=== PATIENT | male | born 1950 | race Caucasian/White ===

== ENCOUNTER → 2020-03-14 11:03 | Outpatient (BNVA) | payer MEDICARE, SELFPAY | PROVIDERS: Family Provider Family Medicine; PCP Nurse Practitioner Family; Visit Provider Nurse Practitioner Family | DX: R82.90 Unspecified abnormal findings in urine (principal); E78.5 Hyperlipidemia, unspecified; E11.9 Type 2 diabetes mellitus without complications; E03.9 Hypothyroidism, unspecified; Z12.5 Encounter for screening for malignant neoplasm of prostate; R39.15 Urgency of urination | CPT/HCPCS: 80053; 80061; 81000; 83036; 84153; 84439; 84443 ==

== ENCOUNTER → 2020-03-19 14:34 | Outpatient (BNVA) | payer MEDICARE, SELFPAY | PROVIDERS: Family Provider Family Medicine; PCP Nurse Practitioner Family; Visit Provider Nurse Practitioner Family | DX: E03.9 Hypothyroidism, unspecified (principal); R82.90 Unspecified abnormal findings in urine | CPT/HCPCS: 80053; 81000 ==

== ENCOUNTER → 2020-05-09 14:35 | Outpatient (BNVA) | payer MEDICARE, SELFPAY | PROVIDERS: Family Provider Family Medicine; PCP Nurse Practitioner Family; Visit Provider Nurse Practitioner Family | DX: N40.0 Benign prostatic hyperplasia without lower urinary tract symptoms (principal); R10.9 Unspecified abdominal pain; R31.9 Hematuria, unspecified; R39.89 Other symptoms and signs involving the genitourinary system; Z87.442 Personal history of urinary calculi | CPT/HCPCS: 80053; 81000; 85025 ==

== ENCOUNTER → 2020-10-22 09:48 | Outpatient (BNVA) | payer MEDICARE, SELFPAY | PROVIDERS: Family Provider Family Medicine; PCP Nurse Practitioner Family; Visit Provider Nurse Practitioner Family | DX: R21 Rash and other nonspecific skin eruption (principal); L29.8 Other pruritus | CPT/HCPCS: 85025 ==

== ENCOUNTER → 2021-03-12 10:37 | Outpatient (BNVA) | payer MEDICARE, SELFPAY | PROVIDERS: Family Provider Family Medicine; PCP Nurse Practitioner Family; Visit Provider Nurse Practitioner Family | DX: R30.0 Dysuria (principal); R82.90 Unspecified abnormal findings in urine; R41.89 Other symptoms and signs involving cognitive functions and awareness | CPT/HCPCS: 36416; 81003; 82962; 87077; 87086; 87184 ==

== ENCOUNTER 2023-06-08 15:20 | Outpatient (CLI) | payer OTHER, SELFPAY ==
--- NOTE | 2023-06-08 15:50 | XR_ITS ---
WS: [id number] XR lumbar spine f/e only [id number] REASON FOR EXAM: Back pain FINDINGS: Exaggeration of the lordosis of the lumbar spine. No significant compression deformity or focal lesion of the lumbar vertebrae. Mild narrowing of the disc spaces L1-S1. 4 to 5 mm of anterolisthesis of L5 4 on L5 in the neutral position. No significant change in the list hesis with flexion and extension. 2 to 3 mm of anterolisthesis of L2 in relation to L1. No significant change with flexion and extensio n. IMPRESSION: Degenerative spondylosis in the lumbar spine as above.
== END 2023-06-08 15:21 | disposition home or self-care (01) ==
PROVIDERS: PCP Nurse Practitioner Family; Visit Provider Nurse Practitioner
DX: M54.51 Vertebrogenic low back pain (principal); M47.816 Spondylosis without myelopathy or radiculopathy, lumbar region
CPT/HCPCS: 72120